=== PATIENT | male | born 1985 | race Caucasian/White ===

== ENCOUNTER → 2022-03-03 | Outpatient (CLI) | payer OTHER ==
[2022-03-03 18:18] LABS: HEMOGLOBIN 13.7 gm/dl (14.0-17.5); RED BLOOD COUNT 5.17 M/UL (4.20-5.50); WHITE BLOOD COUNT 9.6 K/UL (4.5-11.0)
[2022-03-03 19:27] LABS: BUN/CREATININE RATIO 20 (0-10)
[2022-03-05 07:10] LABS: HEPATITIS B SURF AB QUANT 75.8 mIU/mL (Immunity>9.9); HIV AB/P24 AG SCREEN Non Reactive (Non Reactive); THYROXINE (T4) 10.2 ug/dL (4.5-12.0); VITAMIN D, 25-HYDROXY 35.8 ng/mL (30.0-100.0)
[2022-03-08 20:08] LABS: HBSAG SCREEN Negative (Negative); HCV AB >11.0 (0.0-0.9); HCV LOG10 6.782 (.); HEP A AB, IGM Negative (Negative); HEP B CORE AB, IGM Negative (Negative); HEPATITIS C QUANTITATION 6060000 IU/mL (.); QUANTIFERON MITOGEN VALUE >10.00 IU/mL (.); QUANTIFERON NIL VALUE 0.05 IU/mL (.); QUANTIFERON TB1 AG VALUE 0.52 IU/mL (.); QUANTIFERON TB2 AG VALUE 0.55 IU/mL (.); QUANTIFERON-TB GOLD PLUS Positive (Negative)
== END ==
LOC: LAB 16:11
PROVIDERS: Nurse Practitioner
DX: Z11.1 Encounter for screening for respiratory tuberculosis (principal); Z11.3 Encounter for screening for infections with a predominantly sexual mode of transmission; F11.20 Opioid dependence, uncomplicated; F10.20 Alcohol dependence, uncomplicated; F15.20 Other stimulant dependence, uncomplicated; Z79.899 Other long term (current) drug therapy
CPT/HCPCS: 36415; 80053; 80061; 80074; 82248; 82607; 83036; 83735; 84436; 84443; 84481; 85025; 86317; 86704; 87389

== ENCOUNTER → 2022-03-09 | Outpatient (CLI) | payer OTHER | LOC: RAD 15:15 | DX: Z11.1 Encounter for screening for respiratory tuberculosis (principal); Z11.3 Encounter for screening for infections with a predominantly sexual mode of transmission; F11.20 Opioid dependence, uncomplicated; F10.20 Alcohol dependence, uncomplicated; F15.20 Other stimulant dependence, uncomplicated; Z79.899 Other long term (current) drug therapy | CPT/HCPCS: 71046 ==